=== PATIENT | male | born 1990 | race Hispanic/Latino ===

== ENCOUNTER 2020-10-29 07:02 | Observation (INO) | payer SELFPAY ==
[~2020-10-29] VITALS: Ht 188 cm; Wt 117.9 kg
[2020-10-29] MEDS ORDERED: ONDANSETRON ODT 4 MG TAB ONE (07:59)
[2020-10-29] MEDS ORDERED: CEFAZOLIN SODIUM 1 GM VIAL IVP SCH (09:27)
[2020-10-29] MEDS ORDERED: SODIUM CHLORIDE 0.9% 100 ML IV ONE (09:28)
[2020-10-29] MEDS ORDERED: KETOROLAC TROMETHAMINE 30MG/ML ONE (09:28)
[2020-10-29] MEDS ORDERED: CEFAZOLIN SODIUM 1 GM VIAL ONE (09:28)
[2020-10-29 09:52] LABS: BASOPHILS % (AUTO) 0.5 % (0.0-5.0); EOSINOPHILS % (AUTO) 2.4 % (0.0-8.0); HEMATOCRIT 43.4 % (42-54); LYMPHOCYTES % (AUTO) 15.6 % (21.0-51.0); MEAN CORPUSCULAR HEMOGLOBIN 31.9 pg (27.0-33.0); MEAN CORPUSCULAR HGB CONC 36.4 g/dL (32.0-36.0); MEAN CORPUSCULAR VOLUME 87.5 fL (79-99); MONOCYTES % (AUTO) 8.4 % (3.0-13.0); NEUTROPHILS % (AUTO) 71.6 % (40.0-77.0); PLATELET COUNT (AUTO) 213 K/uL (130-400); RED BLOOD CELL COUNT(AUTO) 4.96 MIL/uL (4.50-6.20); RED CELL DISTRIBUTION WIDTH 11.9 % (11.0-15.5); WHITE BLOOD COUNT (AUTO) 9.4 K/uL (4.8-10.8)
[2020-10-29 10:02] LABS: CREATININE 0.8 mg/dL (0.5-1.5); POTASSIUM 3.9 mmol/L (3.5-5.1)
[2020-10-29 10:06] LABS: INR 0.96 (0.85-1.15); PROTHROMBIN TIME 10.5 SEC (9.6-11.6)
[2020-10-29 10:07] LABS: ALBUMIN 3.9 g/dL (3.5-5.0); BILIRUBIN,TOTAL 0.6 mg/dL (0.2-1.0); PARTIAL THROMBOPLASTIN TIME 24.3 SEC (26.3-35.5)
[2020-10-29 18:02] VITALS: BP 142/73
[2020-10-29] MEDS: CEFAZOLIN SODIUM 1 GM VIAL IVP SCH ×2 (18:42→23:37)
[2020-10-29 20:00] VITALS: BP 134/73
[2020-10-30] VITALS (17 sets, daily range): BP systolic 103–128; BP diastolic 58–78
[2020-10-30] MEDS: CEFAZOLIN SODIUM 1 GM VIAL IVP SCH ×2 (06:05→13:06)
[2020-10-30] MEDS ORDERED: MIDAZOLAM HCL 1 MG/ML 2ML VIAL ONE (10:26)
[2020-10-30] MEDS ORDERED: FENTANYL CITRATE PF 50 MCG/1 ML 2ML VIAL ONE (10:27)
[2020-10-30] MEDS ORDERED: PROPOFOL 10 MG/ML 20ML VIAL IV ONE (10:28)
[2020-10-30] MEDS ORDERED: CEFAZOLIN SODIUM 1 GM VIAL ONE (10:31)
[2020-10-30] MEDS ORDERED: GLYCOPYRROLATE 1 MG/5 ML SYRINGE ONE (11:27)
[2020-10-30] MEDS ORDERED: NEOSTIGMINE 5MG/5ML SYR IV ONE (11:27)
[2020-10-30] MEDS ORDERED: KETOROLAC TROMETHAMINE 30MG/ML ONE (11:53)
[2020-10-30] MEDS ORDERED: LACTATED RINGERS 1000ML 1,000 ML IV ONE (12:06)
== END 2020-10-30 18:25 | disposition home or self-care (01) ==
LOC: EDH 07:02 → EDHIP 07:03 → 3DH 14:48
PROVIDERS: ADMIT Surgery Plastic and Reconstructive Surgery; ATTEND Surgery Plastic and Reconstructive Surgery
DX: S60.352A Superficial foreign body of left thumb, initial encounter (principal); Z20.822 Contact with and (suspected) exposure to COVID-19; S60.451A Superficial foreign body of left index finger, initial encounter; S60.852A Superficial foreign body of left wrist, initial encounter; F17.200 Nicotine dependence, unspecified, uncomplicated; X58.XXXA Exposure to other specified factors, initial encounter; Y93.89 Activity, other specified; Y92.89 Other specified places as the place of occurrence of the external cause
CPT/HCPCS: 10120 ×2; 36415; 73110; 73140; 80053; 85025; 85610; 85730; 86850; 86900; 86901; 87070; 87076; 87205; 87426; 93005; 96374; 96376 ×2; 99284; A4565; A4930; G0168; G0378 ×35; J0690 ×6; J1885 ×2; J2250; J2704; J2710; J3010; J3490; J7030; J7120 ×2; U0003

== ENCOUNTER 2023-02-15 05:43 | Emergency (ER) | payer OTHER ==
[~2023-02-15] VITALS: Ht 185.4 cm; Wt 110.7 kg
[2023-02-15] MEDS ORDERED: ONDANSETRON 4MG INJ IVP ONE (06:00)
[2023-02-15] MEDS ORDERED: MORPHINE 4 MG SYG IVP ONE (06:00)
[2023-02-15 06:28] LABS: BASOPHILS % (AUTO) 0.6 % (0.0-5.0); EOSINOPHILS % (AUTO) 3.9 % (0.0-8.0); HEMATOCRIT 41.6 % (42-54); LYMPHOCYTES % (AUTO) 33.2 % (21.0-51.0); MEAN CORPUSCULAR HEMOGLOBIN 32.4 pg (27.0-33.0); MEAN CORPUSCULAR HGB CONC 38.2 g/dL (32.0-36.0); MEAN CORPUSCULAR VOLUME 84.9 fL (79-99); MONOCYTES % (AUTO) 7.8 % (3.0-13.0); NEUTROPHILS % (AUTO) 52.9 % (40.0-77.0); PLATELET COUNT (AUTO) 220 K/uL (130-400); RED CELL DISTRIBUTION WIDTH 11.9 % (11.0-15.5); WHITE BLOOD COUNT (AUTO) 9.3 K/uL (4.8-10.8)
[2023-02-15 06:43] LABS: ALBUMIN 3.9 g/dL (3.5-5.0); POTASSIUM 3.3 mmol/L (3.5-5.1)
[2023-02-15 06:52] LABS: APPEARANCE,URINE CLEAR (CLEAR); BILIRUBIN,URINE NEGATIVE (NEGATIVE); COLOR,URINE LIGHT-YELLOW (YELLOW); GLUCOSE, URINE (UA) NEGATIVE (NEGATIVE); KETONES,URINE NEGATIVE (NEGATIVE); LEUKOCYTE ESTERASE ,URINE NEGATIVE Leu/uL (NEGATIVE); MUCUS,URINE RARE LPF (None Seen); NITRATE,URINE NEGATIVE (NEGATIVE); OCCULT BLOOD,URINE NEGATIVE (NEGATIVE); PROTEIN,URINE NEGATIVE (NEGATIVE); SQUAMOUS EPITHELIAL CELL,UR RARE /HPF (0-2); WBC,URINE 0-1 /HPF (0-1)
[2023-02-15 07:10] LABS: TOTAL PROTEIN, SERUM 7.3 g/dL (6.0-8.3)
[2023-02-15] MEDS ORDERED: PROMETHAZINE HCL 25 MG/ML 1ML AMPULE IM ONE (08:30)
[2023-02-15] MEDS ORDERED: KETO10 PO (09:21)
[2023-02-15] MEDS ORDERED: TAMS-1 PO (09:21)
[2023-02-15] MEDS ORDERED: FAMO-136 PO (09:21)
[2023-02-15] MEDS ORDERED: METO-296 PO (09:21)
[2023-02-15] MEDS ORDERED: KETOROLAC 30MG VIAL (30MG/ML) IVP ONE (09:30)
[2023-02-15] MEDS ORDERED: METOCLOPRAMIDE 10 MG/2 ML VIAL IVP ONE (09:30)
[2023-02-15] MEDS ORDERED: FAMOTIDINE 20MG VIAL IV ONE (09:30)
[2023-02-15 10:01] VITALS: BP 134/78
== END 2023-02-15 10:03 | disposition home or self-care (01) ==
LOC: EDH 05:43
DX: N20.0 Calculus of kidney (principal)
CPT/HCPCS: 99285; 74176; 96374; 96375; 80053; 83690; 85025; 81001; 36415; 76870; 96372; J3490; J2550; J2405; J2270; J1885; J2765